=== PATIENT | male | born 1990 | race Caucasian/White ===

== ENCOUNTER 2024-02-02 12:26 | Emergency (ER) | payer OTHER ==
[2024-02-02] MEDS ORDERED: Lidocaine 1% 5 ML VIAL INFILT ONE (12:27)
[2024-02-02] MEDS: Ketorolac 30 MG/ML SDV IM ONE (12:43)
[2024-02-02] MEDS: Diphtheria,Pertussis(Acell),Tetanus Vaccine 0.5 ML Syringe IM ONE (12:44)
== END 2024-02-02 14:13 | disposition home or self-care (01) ==
LOC: FB.ED 12:26
DX: S61.215A Laceration without foreign body of left ring finger without damage to nail, initial encounter (principal); Z23 Encounter for immunization; W23.0XXA Caught, crushed, jammed, or pinched between moving objects, initial encounter; Y99.0 Civilian activity done for income or pay
CPT/HCPCS: 12001; 73130-LT; 90471; 90715; 96372; 99283-25; J1885